=== PATIENT | female | born 1995 | race American Indian/Alaskan Native ===

== ENCOUNTER 2019-02-24 15:14 | Emergency (ER) | payer MEDICAID ==
[2019-02-24 15:47] VITALS: BP 154/76
--- NOTE | 2019-02-24 15:52 | Event Note ---
ED Screening Note Date of service: 02/24/19 Time: 15:50 ED Screening Note: 23 y/o female comes in for vag bleeding that is preg. LMP November but has irregular periods. This initial assessment/diagnostic orders/clinical plan/treatment(s) is/are subject to change based on patients health status, clinical progression and re- assessment by fellow clinical providers in the ED. Further treatment and workup at subsequent clinical providers discretion. Patient/guardian urged not to elope from the ED as their condition may be serious if not clinically assessed and managed. Initial orders include:
[2019-02-24 16:46] LABS: Basophils % (Auto) 0.2 % (0.0-1.8); Eosinophils # (Auto) 0.1 K/mm3 (0.0-0.4); Eosinophils % (Auto) 0.9 % (0.0-4.3); Hematocrit 35.4 % (30.3-42.9); Hemoglobin 12.3 gm/dl (10.1-14.3); Lymphocytes # (Auto) 3.2 K/mm3 (1.2-5.4); Lymphocytes % (Auto) 31.6 % (13.4-35.0); Mean Corpuscular HGB Conc 35 % (30-34); Mean Corpuscular Volume 81 fl (79-97); Monocytes # (Auto) 0.5 K/mm3 (0.0-0.8); Monocytes % (Auto) 5.5 % (0.0-7.3); Platelet Count 274 K/mm3 (140-440); Red Blood Count 4.39 M/mm3 (3.65-5.03); Red Cell Distribution Width 13.5 % (13.2-15.2)
[2019-02-24 17:20] LABS: Alanine Aminotransferase 13 units/L (7-56); Albumin 4.1 g/dL (3.9-5); BUN/Creatinine Ratio 13; Blood Urea Nitrogen 10 mg/dL (7-17); Calcium 9.6 mg/dL (8.4-10.2); Hemolysis Index 0
[2019-02-24 19:20] LABS: Bilirubin,Urine NEG (Negative); Blood,Urine NEG (Negative); Color,Urine Yellow (Yellow); Mucus,Urine 3+ /HPF; Urobilinogen,Urine < 2.0 mg/dL (<2.0)
--- NOTE | 2019-02-24 20:32 | Ultrasound Report ---
ULTRASOUND OBSTETRIC INDICATION / CLINICAL INFORMATION: preg with vag bleeding. TECHNIQUE: Transabdominal. COMPARISON: None available. FINDINGS: GESTATIONAL SAC: Well-defined oval shape and intrauterine in location. YOLK SAC: No significant abnormality. EMBRYO/FETUS: No significant abnormality. - [place]-Rump Length = 10.5 cm = 7 weeks, 1 day(s). - Heart Rate, beats per minute (if present) = 1:30 ADNEXA: 5 cm left ovarian cyst FREE FLUID: None. ADDITIONAL FINDINGS: Possible small subchorionic hemorrhage IMPRESSION: 1. Single, living intrauterine with estimated sonographic age of 7 weeks, 1 day(s). Signer Name: Preet Honeycutt MD Signed: 02/24/2019 8:27 PM Workstation Name: [id number]
--- NOTE | 2019-02-24 20:32 | Ultrasound Report ---
ULTRASOUND OBSTETRIC INDICATION / CLINICAL INFORMATION: preg with vag bleeding. TECHNIQUE: Transabdominal. COMPARISON: None available. FINDINGS: GESTATIONAL SAC: Well-defined oval shape and intrauterine in location. YOLK SAC: No significant abnormality. EMBRYO/FETUS: No significant abnormality. - [place]-Rump Length = 10.5 cm = 7 weeks, 1 day(s). - Heart Rate, beats per minute (if present) = 1:30 ADNEXA: 5 cm left ovarian cyst FREE FLUID: None. ADDITIONAL FINDINGS: Possible small subchorionic hemorrhage IMPRESSION: 1. Single, living intrauterine with estimated sonographic age of 7 weeks, 1 day(s). Signer Name: Preet Honeycutt MD Signed: 02/24/2019 8:28 PM Workstation Name: [id number]
== END 2019-02-24 17:12 | disposition left against medical advice (07) ==
LOC: ED 15:14
DX: O20.8 Other hemorrhage in early pregnancy (principal); Z53.21 Procedure and treatment not carried out due to patient leaving prior to being seen by health care provider
CPT/HCPCS: 36415; 76801; 76817; 80053; 81001; 84703; 85025; 86900; 86901

== ENCOUNTER 2019-04-06 14:39 | Emergency (ER) | payer MEDICAID ==
[2019-04-06 15:11] VITALS: BP 113/67
--- NOTE | 2019-04-06 15:11 | Event Note ---
ED Screening Note Date of service: 04/06/19 Time: 15:07 ED Screening Note: This is a 23 y.o. F. that presents to the ER with vaginal bleeding and abdominal pain for 1 week. Reports increasing abdominal pain for 2 hours. Diagnosed UTI 3-4 days ago. Patient is 12 weeks . INTER[employer] is Dr. Elias at [facility]. LMP 11/17/2018, A0 Patient also reports abscess to left axilla This initial assessment/diagnostic orders/clinical plan/treatment(s) is/are subject to change based on patients health status, clinical progression and re- assessment by fellow clinical providers in the ED. Further treatment and workup at subsequent clinical providers discretion. Patient/guardian urged not to elope from the ED as their condition may be serious if not clinically assessed and managed. Initial orders include: Labs and OB US
[2019-04-06 15:45] LABS: Bacteria,Urine 1+ /HPF (Negative); Bilirubin,Urine NEG (Negative); Blood,Urine NEG (Negative); Color,Urine Amber (Yellow); Mucus,Urine 3+ /HPF
[2019-04-06 16:21] LABS: Basophils % (Auto) 0.4 % (0.0-1.8); Eosinophils % (Auto) 0.2 % (0.0-4.3); Hematocrit 33.7 % (30.3-42.9); Hemoglobin 11.7 gm/dl (10.1-14.3); Lymphocytes % (Auto) 14.8 % (13.4-35.0); Mean Corpuscular HGB Conc 35 % (30-34); Mean Corpuscular Volume 80 fl (79-97); Monocytes % (Auto) 7.5 % (0.0-7.3); Red Blood Count 4.24 M/mm3 (3.65-5.03); Red Cell Distribution Width 13.7 % (13.2-15.2)
[2019-04-06 16:40] LABS: BUN/Creatinine Ratio 10; Blood Urea Nitrogen 7 mg/dL (7-17); Calcium 9.6 mg/dL (8.4-10.2); Hemolysis Index 0
[2019-04-06 16:56] LABS: Platelet Count 206 K/mm3 (140-440)
[2019-04-06] MEDS ORDERED: CLINDAMYCIN 600 MG/50 mL 600 MG/50 ML BAG IV ONE (18:47)
[2019-04-06] MEDS ORDERED: METOCLOPRAMIDE 10 MG/2 ML INJ IV ONE (18:47)
[2019-04-06] MEDS ORDERED: SODIUM CHLORIDE 0.9% 1000 ML 1,000 ML IV ONE (18:47)
[2019-04-06] MEDS ORDERED: diphenhydrAMINE 50 MG/ML VIAL IV ONE (18:47)
--- NOTE | 2019-04-06 19:59 | Emergency Department Report ---
ED Abdominal Pain HPI - General Chief Complaint: Abdominal Pain Stated Complaint: ABD PAIN Time Seen by Provider: 04/06/19 15:07 Source: patient Mode of arrival: Wheelchair Limitations: No Limitations - History of Present Illness Initial Comments: Patient is a 23-year-old female who presents to emergency room with complaints of suprapubic and pelvic discomfort for a few days. The patient states that a few days ago she had some light vaginal spotting but has not had any since then. States she has had associated nausea and vomiting. She is able to keep liquids down but is unable to eat very much food. pt states she also has an abscess to the right axilla for 5 days. she states she has had these in the past. the patient states she has been doing warm compresses. The patient is currently 13 weeks and is being seen at [facility]. Patient states that her ESTIMATOR PRINTING did a pelvic examination last week and took swabs and states that she does have BV but she has not started her medication yet. pt states her medication is ready for her at the pharmacy. Patient denies any fever, chills, diarrhea, vaginal discharge, vaginal itching, vaginal complaints. She denies any past medical history or allergies to medications. /P:1/A:0 - Related Data Home Medications Medication Instructions Recorded Confirmed Last Taken Ferrous Sulfate [Feosol 325 MG tab] 325 mg PO QDAY 09/14/13 10/09/13 10/09/13 Previous Rx's Medication Instructions Recorded Last Taken Type Amoxicillin [Amoxicillin TAB] 875 mg PO BID #20 tablet 06/18/18 Unknown Rx Ibuprofen [Motrin] 600 mg PO Q8H PRN #20 tablet 06/18/18 Unknown Rx Nystas/Diphen/Xyl Visc/Mylanta 15 ml MM Q4H PRN #1 ml 06/18/18 Unknown Rx [Magic Mouthwash] Acetaminophen [Acetaminophen TAB] 650 mg PO Q6HR PRN #30 tablet 04/02/19 Unknown Rx Nitrofurantoin Clark/M-Cryst 100 mg PO BID 7 Days #14 capsule 04/02/19 Unknown Rx [Macrobid CAP] Ondansetron [Zofran Odt] 4 mg PO Q8HR #12 tab.rapdis 04/02/19 Unknown Rx Clindamycin [Clindamycin CAP] 450 mg PO TID 7 Days #63 capsule 04/06/19 Unknown Rx Doxylamine Succinate [Unisom] 25 mg PO BID PRN #14 tablet 04/06/19 Unknown Rx Jeanie Root [Jeanie] 250 mg PO Q6HR PRN #14 capsule 04/06/19 Unknown Rx Pyridoxine HCl [Vitamin B-6 100MG 100 mg PO BID PRN #14 tablet 04/06/19 Unknown Rx TAB] Allergies Allergy/AdvReac Type Severity Reaction Status Date / Time Latex, Natural Rubber Allergy Rash Verified 02/24/19 15:27 ED Review of Systems ROS: Stated complaint: ABD PAIN Other details as noted in HPI Comment: All other systems reviewed and negative ED Past Medical Hx - Past Medical History Previous Medical History?: Yes Hx Hypertension: No Hx Congestive Heart Failure: No Hx Diabetes: No Hx Deep Vein Thrombosis: No Hx Renal Disease: No Hx Sickle Cell Disease: No Hx Seizures: No Hx Psychiatric Treatment: Yes ([employer], PTSD) Hx Asthma: No Hx COPD: No Hx HIV: No Additional medical history: brenda tomy syndrome - Surgical History Past Surgical History?: No - Social History Smoking Status: Never Smoker Substance Use Type: None - Medications Home Medications: Home Medications Medication Instructions Recorded Confirmed Last Taken Type Ferrous Sulfate [Feosol 325 MG tab] 325 mg PO QDAY 09/14/13 10/09/13 10/09/13 History Amoxicillin [Amoxicillin TAB] 875 mg PO BID #20 tablet 06/18/18 Unknown Rx Ibuprofen [Motrin] 600 mg PO Q8H PRN #20 tablet 06/18/18 Unknown Rx Nystas/Diphen/Xyl Visc/Mylanta 15 ml MM Q4H PRN #1 ml 06/18/18 Unknown Rx [Magic Mouthwash] Acetaminophen [Acetaminophen TAB] 650 mg PO Q6HR PRN #30 tablet 04/02/19 Unknown Rx Nitrofurantoin Clark/M-Cryst 100 mg PO BID 7 Days #14 capsule 04/02/19 Unknown Rx [Macrobid CAP] Ondansetron [Zofran Odt] 4 mg PO Q8HR #12 tab.rapdis 04/02/19 Unknown Rx Clindamycin [Clindamycin CAP] 450 mg PO TID 7 Days #63 capsule 04/06/19 Unknown Rx Doxylamine Succinate [Unisom] 25 mg PO BID PRN #14 tablet 04/06/19 Unknown Rx Jeanie Root [Jeanie] 250 mg PO Q6HR PRN #14 capsule 04/06/19 Unknown Rx Pyridoxine HCl [Vitamin B-6 100MG 100 mg PO BID PRN #14 tablet 04/06/19 Unknown Rx TAB] ED Physical Exam - General Limitations: No Limitations General appearance: alert, in no apparent distress - Head Head exam: Present: atraumatic, normocephalic - Eye Eye exam: Present: normal appearance - ENT ENT exam: Present: mucous membranes moist - Respiratory Respiratory exam: Present: normal lung sounds bilaterally. Absent: respiratory distress, wheezes, rales, rhonchi, stridor, chest wall tenderness, accessory muscle use, decreased breath sounds, prolonged expiratory - Cardiovascular Cardiovascular Exam: Present: regular rate, normal rhythm, normal heart sounds. Absent: systolic murmur, diastolic murmur, rubs, gallop - GI/Abdominal GI/Abdominal exam: Present: soft, normal bowel sounds. Absent: distended, tenderness, guarding, rebound, rigid - Speculum exam: Present: other (pt deferred ) - Back Exam Back exam: Absent: CVA tenderness (R), CVA tenderness (L) - Neurological Exam Neurological exam: Present: alert, oriented X3 - Psychiatric Psychiatric exam: Present: normal affect, normal mood - Skin Skin exam: Present: warm, dry, other (several small 1 cm areas of induration to the right axilla, no fluctuance, no drainage, no surrounding cellulitis) ED Course Vital Signs 04/06/19 15:08 Temperature 99 F Pulse Rate 116 H Respiratory 16 Rate Blood Pressure 113/67 [Left] O2 Sat by Pulse 99 Oximetry ED Medical Decision Making - Lab Data Result diagrams: 04/06/19 16:11 04/06/19 16:11 Lab Results 04/06/19 04/06/19 04/06/19 Range/Units 15:27 16:11 16:11 WBC 13.6 H (4.5-11.0) K/mm3 RBC 4.24 (3.65-5.03) M/mm3 Hgb 11.7 (10.1-14.3) gm/dl Hct 33.7 (30.3-42.9) % MCV 80 (79-97) fl MCH 28 (28-32) pg MCHC 35 H (30-34) % RDW 13.7 (13.2-15.2) % Plt Count 206 (140-440) K/mm3 Lymph % (Auto) 14.8 (13.4-35.0) % Clark % (Auto) 7.5 H (0.0-7.3) % Eos % (Auto) 0.2 (0.0-4.3) % Baso % (Auto) 0.4 (0.0-1.8) % Lymph # 2.0 (1.2-5.4) K/mm3 Clark # 1.0 H (0.0-0.8) K/mm3 Eos # 0.0 (0.0-0.4) K/mm3 Baso # 0.0 (0.0-0.1) K/mm3 Seg Neutrophils % 77.1 H (40.0-70.0) % Seg Neutrophils # 10.5 H (1.8-7.7) K/mm3 Sodium (137-145) mmol/L Potassium (3.6-5.0) mmol/L Chloride (98-107) mmol/L Carbon Dioxide (22-30) mmol/L Anion Gap mmol/L BUN (7-17) mg/dL Creatinine (0.7-1.2) mg/dL Estimated GFR ml/min BUN/Creatinine Ratio % Glucose (65-100) mg/dL Calcium (8.4-10.2) mg/dL HCG, Quant 34015 H (0-4) mIU/mL Urine Color Lennie (Yellow) Urine Turbidity Cloudy (Clear) Urine pH 6.0 (5.0-7.0) Ur Specific [place] 1.029 (1.003-1.030) Urine Protein 100 mg/dl (Negative) mg/dL Urine Glucose (UA) Neg (Negative) mg/dL Urine Ketones 80 (Negative) mg/dL Urine Blood Neg (Negative) Urine Nitrite Neg (Negative) Urine Bilirubin Neg (Negative) Urine Urobilinogen 2.0 (<2.0) mg/dL Ur Leukocyte Esterase Neg (Negative) Urine WBC (Auto) 4.0 (0.0-6.0) /HPF Urine RBC (Auto) 3.0 (0.0-6.0) /HPF U Epithel Cells (Auto) 31.0 H (0-13.0) /HPF Urine Bacteria (Auto) 1+ (Negative) /HPF Urine Mucus 3+ /HPF 04/06/19 Range/Units 16:11 WBC (4.5-11.0) K/mm3 RBC (3.65-5.03) M/mm3 Hgb (10.1-14.3) gm/dl Hct (30.3-42.9) % MCV (79-97) fl MCH (28-32) pg MCHC (30-34) % RDW (13.2-15.2) % Plt Count (140-440) K/mm3 Lymph % (Auto) (13.4-35.0) % Clark % (Auto) (0.0-7.3) % Eos % (Auto) (0.0-4.3) % Baso % (Auto) (0.0-1.8) % Lymph # (1.2-5.4) K/mm3 Clark # (0.0-0.8) K/mm3 Eos # (0.0-0.4) K/mm3 Baso # (0.0-0.1) K/mm3 Seg Neutrophils % (40.0-70.0) % Seg Neutrophils # (1.8-7.7) K/mm3 Sodium 137 (137-145) mmol/L Potassium 3.4 L (3.6-5.0) mmol/L Chloride 100.4 (98-107) mmol/L Carbon Dioxide 17 L (22-30) mmol/L Anion Gap 23 mmol/L BUN 7 (7-17) mg/dL Creatinine 0.7 (0.7-1.2) mg/dL Estimated GFR > 60 ml/min BUN/Creatinine Ratio 10 % Glucose 84 (65-100) mg/dL Calcium 9.6 (8.4-10.2) mg/dL HCG, Quant (0-4) mIU/mL Urine Color (Yellow) Urine Turbidity (Clear) Urine pH (5.0-7.0) Ur Specific [place] (1.003-1.030) Urine Protein (Negative) mg/dL Urine Glucose (UA) (Negative) mg/dL Urine Ketones (Negative) mg/dL Urine Blood (Negative) Urine Nitrite (Negative) Urine Bilirubin (Negative) Urine Urobilinogen (<2.0) mg/dL Ur Leukocyte Esterase (Negative) Urine WBC (Auto) (0.0-6.0) /HPF Urine RBC (Auto) (0.0-6.0) /HPF U Epithel Cells (Auto) (0-13.0) /HPF Urine Bacteria (Auto) (Negative) /HPF Urine Mucus /HPF - Radiology Data Radiology results: report reviewed OB ultrasound: There is a single intrauterine BPD=2.1cm = 13 weeks, 2 days Femur length = 1 cm = 13 weeks, 1 day Overall estimated sonographic age = 13 weeks, 2 days heart rate is 156 bpm Placenta is anterior Amniotic fluid volume appears normal Maternal adnexa 2.5 cm cyst in the left ovary. right ovary is unremarkable Uterine fibroid is noted Impression: 1. Single living intrauterine with estimated sonographic age of 13 weeks, 2 days. 2. There has been satisfactory interval growth since 04/02/2019 Signer name: Lorenzo Vazquez M.D. Signed: 04/06/2019 3:30 PM Workstation name: [id number] - Medical Decision Making Patient is a 33-year-old female who presents to emergency room with complaints of suprapubic and pelvic discomfort for a few days. The patient states that a few days ago she had some light vaginal spotting but has not had any since then. States she has had associated nausea and vomiting. She is able to keep liquids down but is unable to eat very much food. pt states she also has an abscess to the right axilla for 5 days. she states she has had these in the past. the patient states she has been doing warm compresses. The patient is currently 13 weeks and is being seen at [facility] [employer] [employer]. Patient states that her ESTIMATOR PRINTING did a pelvic examination last week and took swabs and states that she does have BV but she has not started her medication yet. pt states her medication is ready for her at the pharmacy. Patient denies any fever, chills, diarrhea, vaginal discharge, vaginal itching, vaginal complaints. She denies any past medical history or allergies to medications. /P:1/A:0. labs with mildly elevated WBC at 13,000. UA without evidence of UTI. OB US: 1. Single living intrauterine with estimated sonographic age of 13 weeks, 2 days. 2. There has been satisfactory interval growth since 04/02/2019. on exam: several small 1 cm areas of induration to the right axilla, no fluctuance, no drainage, no surrounding cellulitis, no abd tenderness to palpation. appears to have several small early abscesses to the right axilla, no drainable abscess at this time, pt given IV clindamycin and discharged home with prescription for clindamycin. advised pt that if abx did not work and began to become larger/fluctuant would need to return to the ED immediately for I&D procedure. pt given 1L of fluids, reglan and benadryl. given 1L of fluids due to ketones in urine and mild dehydration. pt was able to tolerate PO intake and had no further episodes of N/v. discussed with pt that we could do another pelvic examination today but she states she just had one completed last week and is going to follow up with her ESTIMATOR [employer]ING in office next week. pt given prescription for clindamycin, vitamin b6, unisom, and gingeroot. advised pt to take the vitamin b6 and unisom together. also advised pt to please take medication as prescribed to completion. Please increase her water intake. Follow-up with your [employer]ATOR [employer]ING in the next 3-5 days. Return to the emergency room for any new or worsening symptoms. Please return for any worsening signs of infection despite antibiotic therapy. please use warm compresses 3 times a day. - Differential Diagnosis UTI, IUP, subchorionic hemorrhage, placenta previa Critical care attestation.: If time is entered above; I have spent that time in minutes in the direct care of this critically ill patient, excluding procedure time. ED Disposition Clinical Impression: Abscess of right axilla Nausea and vomiting Qualifiers: Vomiting type: unspecified Vomiting Intractability: non-intractable Qualified Code(s): R11.2 - Nausea with vomiting, unspecified Abdominal pain during Qualifiers: Trimester: second trimester Qualified Code(s): O26.892 - Other specified related conditions, second trimester Disposition: DC-01 TO HOME OR SELFCARE Is pt being admited?: No Does the pt Need Aspirin: No Condition: Stable Instructions: Abscess (ED), Abdominal Pain in (ED) Additional Instructions: Please take medication as prescribed to completion. Please increase her water intake. Follow-up with your [employer] in the next 3-5 days. Return to the emergency room for any new or worsening symptoms. Please return for any worsening signs of infection despite antibiotic therapy. please use warm comp resses 3 times a day. Prescriptions: Clindamycin [Clindamycin CAP] 450 mg PO TID 7 Days #63 capsule Jeanie Root [Jeanie] 250 mg PO Q6HR PRN #14 capsule PRN Reason: Nausea And Vomiting Doxylamine Succinate [Unisom] 25 mg PO BID PRN #14 tablet PRN Reason: Nausea And Vomiting Pyridoxine HCl [Vitamin B-6 100MG TAB] 100 mg PO BID PRN #14 tablet PRN Reason: Nausea And Vomiting Referrals: [facility] [Provider Group] - 3-5 Days Time of Disposition: 19:59 Print Language: CZECH
--- NOTE | 2019-04-10 12:19 | Ultrasound Report ---
ULTRASOUND OBSTETRIC Indication: 12 wks gest, vaginal bleeding and pelvic pain COMPARISON: 04/02/2019 Findings: There is a single intrauterine . BPD = 2.1 cm = 13 weeks, 2 day(s). Femur length = 1 cm = 13 weeks, 1 day(s). Overall estimated sonographic age = 13 weeks, 2 day(s). heart rate is 156 beats per minute. Placenta is anterior . Amniotic fluid volume appears normal. Maternal adnexa 2.5 cm cyst in the left ovary. The right ovary is unremarkable.. Uterine fibroid is noted Impression: 1. Single living intrauterine with estimated sonographic age of 13 weeks, 2 day(s). 2. There has been satisfactory interval growth since 04/02/2019 Signer Name: Yanick Vazquez MD Signed: 04/06/2019 4:30 PM Workstation Name: [id number]
== END 2019-04-06 20:38 | disposition home or self-care (01) ==
LOC: ED 14:39
DX: O99.711 Diseases of the skin and subcutaneous tissue complicating pregnancy, first trimester (principal); L02.411 Cutaneous abscess of right axilla; O21.8 Other vomiting complicating pregnancy; R10.2 Pelvic and perineal pain; Z79.899 Other long term (current) drug therapy; Z91.040 Latex allergy status; Z91.048 Other nonmedicinal substance allergy status; Z3A.13 13 weeks gestation of pregnancy
CPT/HCPCS: 36415; 76801; 80048; 81001; 84702; 85025; 96365; 96375; 99284; J1200; J2765; J7030

== ENCOUNTER 2019-09-25 16:08 | Inpatient (IN) | payer MEDICAID ==
[2019-09-25 17:58] LABS: Basophils % (Auto) 0.4 % (0.0-1.8); Eosinophils # (Auto) 0.1 K/mm3 (0.0-0.4); Eosinophils % (Auto) 0.6 % (0.0-4.3); Hematocrit 32.4 % (30.3-42.9); Hemoglobin 11.2 gm/dl (10.1-14.3); Lymphocytes # (Auto) 3.4 K/mm3 (1.2-5.4); Lymphocytes % (Auto) 26.5 % (13.4-35.0); Mean Corpuscular HGB Conc 35 % (30-34); Mean Corpuscular Volume 80 fl (79-97); Monocytes % (Auto) 7.5 % (0.0-7.3); Platelet Count 271 K/mm3 (140-440); Red Blood Count 4.07 M/mm3 (3.65-5.03)
[2019-09-25] MEDS ORDERED: DINOPROSTONE 10 MG VAG SUPP VG ONE (18:00)
[2019-09-25] MEDS ORDERED: LACTATED RINGERS 1,000 ML IV SCH (18:00)
[2019-09-25] MEDS ORDERED: ZOLPIDEM 5 MG TAB PO PRN (21:24)
--- NOTE | 2019-09-25 21:59 | Ultrasound Report ---
ULTRASOUND OBSTETRIC INDICATION / CLINICAL INFORMATION: EFW and presentation. Clinical Gestational Age (GA): 37 weeks 4 days TECHNIQUE: Transabdominal. COMPARISON: First trimester ultrasound from 04/06/2019 FINDINGS: There is a single intrauterine . Biparietal Diameter = 8.8 cm = 35 weeks, 4 day(s). Head Circumference = 32.3 cm = 36 weeks, 3 day(s). Abdominal Circumference = 33.9 cm = 37 weeks, 5 day(s). Femur Length = 7.0 cm = 36 weeks, 0 day(s). Average Ultrasound Age (AUA) = 36 weeks, 3 day(s). Heart Rate: 126 beats per minute. Estimated Weight in grams (if calculated): 3074 Estimated Weight Growth Percentile (if calculated): Position: cephalic. Cervix: closed. Length in cm (if measured): 3.3 Placenta: anterior and free of the os. Amniotic Fluid Volume: normal Amniotic Fluid Index (KHADRA) in cm (if calculated): 12.5. Maternal Adnexa: No significant abnormality. IMPRESSION: 1. Single, living intrauterine with estimated sonographic age of 36 weeks, 3 day(s). 2. No significant sonographic abnormality. Signer Name: Itz Hansen MD Signed: 09/25/2019 9:55 PM Workstation Name: [email or web address]
[2019-09-26] MEDS ORDERED: ONDANSETRON 4 MG/2 ML INJ IV PRN (07:48)
[2019-09-26] MEDS ORDERED: TERBUTALINE 1 MG/1 ML INJ IVP PRN (07:48)
[2019-09-26] MEDS ORDERED: PROMETHAZINE 25 MG TAB PO PRN (07:48)
[2019-09-26] MEDS ORDERED: TERBUTALINE 1 MG/1 ML INJ SUB-Q PRN (07:48)
[2019-09-26] MEDS ORDERED: ePHEDrine SULFATE 50 MG/1 ML INJ IV PRN (07:48)
[2019-09-26] MEDS ORDERED: NALOXONE 0.4 MG/1 ML INJ IV PRN (07:48)
[2019-09-26] MEDS ORDERED: OXYTOCIN DRIP 30 UNITS/500 ML BAG IV SCH ×2 (08:00)
[2019-09-26] MEDS ORDERED: OXYTOCIN 20 UNIT/1000ML DRIP 20 UNITS/1,000 ML BAG IV SCH (08:00)
--- NOTE | 2019-09-26 08:44 | History and Physical Report ---
History of Present Illness Date of examination: 09/26/19 Date of admission: 09/26/19 Chief complaint: Sent from [facility] for induction of labor. History of present illness: Pt is a 24 yo at 37w5d EGA who presents from the [facility] office for IOL secondary to oligohydramnios at term. KHADRA was 5cm. She reports positive movement and contractions s/p Cervidil placement last night. She has received care with [facility] and [facility]. 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 She is GBS negative. Past History Past Medical History: other (anxiety, depression, Pranay-Maryellen syndrome) Past Surgical History: no surgical history Social history: no significant social history - Obstetrical History Expected Date of Delivery: 10/12/19 Actual Gestation: 37 Week(s) 5 Day(s) : 2 Para: 1 Hx # Term Pregnancies: 1 Number of Living Children: 1 Medications and Allergies Allergies Allergy/AdvReac Type Severity Reaction Status Date / Time Latex, Natural Rubber Allergy Rash Verified 02/24/19 15:27 Home Medications Medication Instructions Recorded Confirmed Last Taken Type No Known Home Medications [No 09/25/19 09/25/19 Unknown History Reported Home Medications] Active Meds: Active Medications Butorphanol Tartrate (Stadol) 2 mg IV Q2H PRN PRN Reason: Labor Pain Ephedrine Sulfate (Ephedrine Sulfate) 10 mg IV Q2M PRN PRN Reason: Hypotension Lactated Ringer's (Lactated Ringers) 1,000 mls @ 125 mls/hr IV DIRECT CINDY Last Admin: 09/26/19 00:36 Dose: 125 mls/hr Documented by: Oxytocin/Sodium Chloride (Pitocin/Ns 20 Unit/1000ml Drip) 20 units in 1,000 mls @ 125 mls/hr IV DIRECT CINDY Oxytocin/Sodium Chloride (Pitocin/Ns 30 Unit/500ml) 30 units in 500 mls @ 1 mls/hr IV TITR CINDY; Protocol Oxytocin/Sodium Chloride (Pitocin/Ns 30 Unit/500ml) 30 units in 500 mls @ 2 mls/hr IV TITR CINDY; Protocol Lactated Ringer's (Lactated Ringers) 1,000 mls @ 125 mls/hr IV DIRECT CINDY Lidocaine (Xylocaine 2%) 20 ml INFILTRATI ONCE ONE Stop: 09/26/19 07:49 Mineral Oil (Mineral Oil) 30 ml PO QHS PRN PRN Reason: Constipation Naloxone HCl (Naloxone) 0.1 mg IV Q2MIN PRN PRN Reason: Res Rate </= 8 or 02 SAT < 92% Ondansetron HCl (Zofran) 4 mg IV Q8H PRN PRN Reason: Nausea And Vomiting Promethazine HCl (Phenergan) 25 mg PO Q6H PRN PRN Reason: Nausea And Vomiting Terbutaline Sulfate (Brethine) 0.25 mg SUB-Q ONCE PRN PRN Reason: Hyperstimulation/Hypertonicity Terbutaline Sulfate (Brethine) 0.25 mg IVP ONCE PRN PRN Reason: Hyperstimulation/Hypertonicity Zolpidem Tartrate (Ambien) 5 mg PO QHS PRN PRN Reason: Sleep Last Admin: 09/26/19 03:40 Dose: 5 mg Documented by: Review of Systems All systems: negative Genitourinary: contractions (mild), no vaginal bleeding, no leakage of fluid - Vital Signs Vital signs: Vital Signs Temp Pulse Resp BP Pulse Ox 97.9 F 102 H 18 127/58 98 09/25/19 16:45 09/25/19 16:45 09/25/19 16:45 09/25/19 16:45 09/25/19 16:45 Temp Pulse Resp BP Pulse Ox 98.1 F 77 18 101/57 96 09/26/19 03:00 09/26/19 08:36 09/25/19 19:07 09/26/19 07:49 09/26/19 08:36 - Physical Exam Lungs: Positive: Normal air movement Abdomen: Positive: soft Uterus: Positive: enlarged (gravid) - Obstetrical FHR: category 1 Uterine Contraction Monitor Mode: External Results Result Diagrams: 09/25/19 17:30 Abnormal lab results 09/25/19 Range/Units 17:30 WBC 12.7 H (4.5-11.0) K/mm3 MCHC 35 H (30-34) % RDW 16.0 H (13.2-15.2) % [place] % (Auto) 7.5 H (0.0-7.3) % [place] # 1.0 H (0.0-0.8) K/mm3 Seg Neutrophils # 8.3 H (1.8-7.7) K/mm3 All other labs normal. Assessment and Plan A: 24 yo at 37.5 weeks EGA Oligohydramnios Pranay [place] Syndrome right pyelectasis Lamictal and Buspar this Hgb C trait GBS negative Membranes intact P: IOL for oligo Peds team aware Monitor closely Pitocin when cervix favorable Anticipate
[2019-09-26 09:46] LABS: Hematocrit 34.2 % (30.3-42.9); Hemoglobin 11.7 gm/dl (10.1-14.3); Mean Corpuscular HGB Conc 34 % (30-34); Mean Corpuscular Volume 80 fl (79-97); Platelet Count 268 K/mm3 (140-440); Red Blood Count 4.27 M/mm3 (3.65-5.03); Red Cell Distribution Width 15.9 % (13.2-15.2)
[2019-09-26] MEDS: LACTATED RINGERS 1,000 ML IV SCH ×2 (10:59→19:20)
[2019-09-26] MEDS ORDERED: LIDOCAINE (2%) 20 MG/1 ML VIAL 20 ML MDV INFILTRATI ONE (11:00)
[2019-09-26] MEDS ORDERED: miSOPROStol 25 MCG TAB VG SCH (11:00)
[2019-09-26] MEDS: busPIRone 10 MG TAB PO SCH ×2 (11:24→22:07)
[2019-09-26] MEDS: lamoTRIgine 25 MG TAB PO SCH (11:24)
[2019-09-26] MEDS ORDERED: DINOPROSTONE 10 MG VAG SUPP VG SCH (15:30)
[2019-09-26] MEDS: BUTORPHANOL 2 MG/1 ML INJ IV PRN (20:45)
[2019-09-26] MEDS ORDERED: MINERAL OIL 30 ML ORAL LIQD PO PRN (22:00)
[2019-09-27] MEDS: LACTATED RINGERS 1,000 ML IV SCH ×2 (00:56→10:10)
[2019-09-27] MEDS ORDERED: OXYTOCIN DRIP 30 UNITS/500 ML BAG IV SCH (04:30)
--- NOTE | 2019-09-27 08:39 | Progress Note ---
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 Cook catheter placed in sterile fashion, inflated to 60ml/60ml. Continue low dose Pitocin Peds team aware Monitor closely Anticipate Subjective - Subjective Date of service: 09/27/19 Principal diagnosis: IOL for oligohydramnios Interval history: HD3 of IOL for oligohydramnios. Patient reports frequent contractions overnight, have not picked up on toco. Pt is a 24 yo at 37w5d EGA who presents from the [facility] office for IOL secondary to oligohydramnios at term. KHADRA was 5cm. She reports positive movement and contractions s/p Cervidil placement last night. She has received care with [facility] and [facility]. Her has been complicated by Pranay-Mareyllen syndrome, anxiety and depression on Lamictal and Buspar, right pyelectasis 7mm, and HgbC trait without FOB testing. She is GBS negative. Patient reports: no new complaints, no loss of fluid Objective - Vital Signs Vital Signs: Vital Signs - 12hr 09/26/19 09/26/19 09/26/19 20:38 20:43 20:48 Temperature Pulse Rate 101 H 100 H 95 H Respiratory Rate Blood Pressure Blood Pressure [Left] O2 Sat by Pulse 98 98 99 Oximetry 09/26/19 09/26/19 09/26/19 20:53 20:58 21:03 Temperature Pulse Rate 86 98 H 96 H Respiratory Rate Blood Pressure Blood Pressure [Left] O2 Sat by Pulse 98 96 98 Oximetry 09/26/19 09/26/19 09/26/19 21:08 21:13 21:18 Temperature Pulse Rate 86 100 H 86 Respiratory Rate Blood Pressure Blood Pressure [Left] O2 Sat by Pulse 97 97 96 Oximetry 09/26/19 09/26/19 09/26/19 21:23 21:28 21:33 Temperature Pulse Rate 99 H 91 H 95 H Respiratory Rate Blood Pressure Blood Pressure [Left] O2 Sat by Pulse 94 98 98 Oximetry 09/26/19 09/26/19 09/26/19 21:38 21:43 22:02 Temperature Pulse Rate 115 H 110 H 100 H Respiratory Rate Blood Pressure Blood Pressure [Left] O2 Sat by Pulse 98 99 98 Oximetry 09/26/19 09/26/19 09/26/19 22:07 22:12 22:17 Temperature Pulse Rate 96 H 103 H 92 H Respiratory Rate Blood Pressure Blood Pressure [Left] O2 Sat by Pulse 98 97 94 Oximetry 09/26/19 09/26/19 09/26/19 22:22 22:27 22:32 Temperature Pulse Rate 100 H 93 H 98 H Respiratory Rate Blood Pressure Blood Pressure [Left] O2 Sat by Pulse 94 95 94 Oximetry 09/26/19 09/26/19 09/26/19 22:37 22:42 22:47 Temperature Pulse Rate 102 H 90 90 Respiratory Rate Blood Pressure Blood Pressure [Left] O2 Sat by Pulse 96 94 95 Oximetry 09/26/19 09/26/19 09/26/19 22:52 22:57 23:02 Temperature Pulse Rate 97 H 97 H 98 H Respiratory Rate Blood Pressure Blood Pressure [Left] O2 Sat by Pulse 97 97 97 Oximetry 09/26/19 09/26/19 09/26/19 23:07 23:12 23:17 Temperature Pulse Rate 93 H 106 H 101 H Respiratory Rate Blood Pressure Blood Pressure [Left] O2 Sat by Pulse 95 98 98 Oximetry 09/26/19 09/26/19 09/26/19 23:22 23:24 23:27 Temperature Pulse Rate 97 H 92 H 88 Respiratory Rate Blood Pressure 111/56 Blood Pressure [Left] O2 Sat by Pulse 97 97 Oximetry 09/26/19 09/26/19 09/26/19 23:32 23:37 23:42 Temperature Pulse Rate 89 94 H 98 H Respiratory Rate Blood Pressure Blood Pressure [Left] O2 Sat by Pulse 97 97 97 Oximetry 09/26/19 09/26/19 09/26/19 23:47 23:52 23:57 Temperature 98.4 F Pulse Rate 89 90 92 H Respiratory 18 Rate Blood Pressure Blood Pressure [Left] O2 Sat by Pulse 98 97 98 Oximetry 09/27/19 09/27/19 09/27/19 00:12 00:17 00:22 Temperature Pulse Rate 102 H 95 H 92 H Respiratory Rate Blood Pressure Blood Pressure [Left] O2 Sat by Pulse 97 97 96 Oximetry 09/27/19 09/27/19 09/27/19 00:27 00:32 00:37 Temperature Pulse Rate 89 90 99 H Respiratory Rate Blood Pressure Blood Pressure [Left] O2 Sat by Pulse 99 97 98 Oximetry 09/27/19 09/27/19 09/27/19 00:42 00:52 00:57 Temperature Pulse Rate 94 H 115 H 97 H Respiratory Rate Blood Pressure Blood Pressure [Left] O2 Sat by Pulse 99 97 98 Oximetry 09/27/19 09/27/19 09/27/19 01:02 01:07 01:12 Temperature Pulse Rate 98 H 94 H 95 H Respiratory Rate Blood Pressure Blood Pressure [Left] O2 Sat by Pulse 97 97 99 Oximetry 09/27/19 09/27/19 09/27/19 01:17 01:22 01:27 Temperature Pulse Rate 91 H 92 H 93 H Respiratory Rate Blood Pressure Blood Pressure [Left] O2 Sat by Pulse 98 99 99 Oximetry 09/27/19 09/27/19 09/27/19 01:32 01:37 01:49 Temperature Pulse Rate 90 110 H 91 H Respiratory Rate Blood Pressure Blood Pressure [Left] O2 Sat by Pulse 98 99 98 Oximetry 09/27/19 09/27/19 09/27/19 01:54 01:59 02:04 Temperature Pulse Rate 88 89 78 Respiratory Rate Blood Pressure Blood Pressure [Left] O2 Sat by Pulse 99 98 99 Oximetry 09/27/19 09/27/19 09/27/19 02:09 02:14 02:19 Temperature Pulse Rate 86 82 90 Respiratory Rate Blood Pressure Blood Pressure [Left] O2 Sat by Pulse 99 99 98 Oximetry 09/27/19 09/27/19 09/27/19 02:24 02:32 02:37 Temperature Pulse Rate 102 H 107 H 89 Respiratory Rate Blood Pressure 105/51 Blood Pressure [Left] O2 Sat by Pulse 99 98 98 Oximetry 09/27/19 09/27/19 09/27/19 02:42 02:47 02:52 Temperature Pulse Rate 83 86 82 Respiratory Rate Blood Pressure Blood Pressure [Left] O2 Sat by Pulse 98 98 97 Oximetry 09/27/19 09/27/19 09/27/19 02:57 03:02 03:07 Temperature Pulse Rate 80 82 82 Respiratory Rate Blood Pressure Blood Pressure [Left] O2 Sat by Pulse 97 97 97 Oximetry 09/27/19 09/27/19 09/27/19 03:12 03:17 03:22 Temperature Pulse Rate 79 81 88 Respiratory Rate Blood Pressure Blood Pressure [Left] O2 Sat by Pulse 97 97 98 Oximetry 09/27/19 09/27/19 09/27/19 03:27 03:35 03:40 Temperature Pulse Rate 88 64 90 Respiratory Rate Blood Pressure Blood Pressure [Left] O2 Sat by Pulse 98 84 98 Oximetry 09/27/19 09/27/19 09/27/19 03:45 03:50 03:54 Temperature Pulse Rate 83 84 87 Respiratory Rate Blood Pressure 100/50 Blood Pressure [Left] O2 Sat by Pulse 98 99 Oximetry 09/27/19 09/27/19 09/27/19 03:55 04:00 04:05 Temperature 98.2 F Pulse Rate 84 86 79 Respiratory 16 Rate Blood Pressure Blood Pressure [Left] O2 Sat by Pulse 98 97 97 Oximetry 09/27/19 09/27/19 09/27/19 04:10 04:15 04:20 Temperature Pulse Rate 101 H 90 80 Respiratory Rate Blood Pressure Blood Pressure [Left] O2 Sat by Pulse 100 99 99 Oximetry 09/27/19 09/27/19 09/27/19 04:25 04:30 04:35 Temperature Pulse Rate 88 78 77 Respiratory Rate Blood Pressure Blood Pressure [Left] O2 Sat by Pulse 97 97 97 Oximetry 09/27/19 09/27/19 09/27/19 04:40 04:45 04:50 Temperature Pulse Rate 82 79 84 Respiratory Rate Blood Pressure Blood Pressure [Left] O2 Sat by Pulse 98 97 99 Oximetry 09/27/19 09/27/19 09/27/19 04:55 05:00 05:05 Temperature Pulse Rate 84 79 89 Respiratory Rate Blood Pressure Blood Pressure [Left] O2 Sat by Pulse 99 98 97 Oximetry 09/27/19 09/27/19 09/27/19 05:10 05:15 05:20 Temperature Pulse Rate 100 H 90 81 Respiratory Rate Blood Pressure Blood Pressure [Left] O2 Sat by Pulse 99 98 99 Oximetry 09/27/19 09/27/19 09/27/19 05:25 05:30 05:50 Temperature Pulse Rate 94 H 95 H 91 H Respiratory Rate Blood Pressure 112/56 Blood Pressure [Left] O2 Sat by Pulse 99 98 97 Oximetry 09/27/19 09/27/19 09/27/19 05:55 06:00 06:05 Temperature Pulse Rate 84 80 79 Respiratory Rate Blood Pressure Blood Pressure [Left] O2 Sat by Pulse 97 98 97 Oximetry 09/27/19 09/27/19 09/27/19 06:10 06:15 06:20 Temperature Pulse Rate 79 78 78 Respiratory Rate Blood Pressure Blood Pressure [Left] O2 Sat by Pulse 98 97 97 Oximetry 09/27/19 09/27/19 09/27/19 06:25 06:30 06:35 Temperature Pulse Rate 77 74 82 Respiratory Rate Blood Pressure Blood Pressure [Left] O2 Sat by Pulse 98 93 98 Oximetry 09/27/19 09/27/19 09/27/19 06:40 06:45 06:50 Temperature Pulse Rate 76 78 72 Respiratory Rate Blood Pressure Blood Pressure [Left] O2 Sat by Pulse 97 97 97 Oximetry 09/27/19 09/27/19 09/27/19 06:54 06:55 07:00 Temperature Pulse Rate 80 90 82 Respiratory Rate Blood Pressure 111/51 Blood Pressure [Left] O2 Sat by Pulse 98 98 Oximetry 09/27/19 09/27/19 09/27/19 07:05 07:10 07:15 Temperature Pulse Rate 80 78 81 Respiratory Rate Blood Pressure Blood Pressure [Left] O2 Sat by Pulse 97 100 97 Oximetry 09/27/19 09/27/19 09/27/19 07:20 07:25 07:31 Temperature 98.2 F Pulse Rate 85 103 H 88 Respiratory 18 Rate Blood Pressure Blood Pressure 90/50 [Left] O2 Sat by Pulse 97 98 98 Oximetry 09/27/19 09/27/19 09/27/19 07:32 07:36 07:37 Temperature Pulse Rate 74 88 85 Respiratory Rate Blood Pressure 90/50 Blood Pressure [Left] O2 Sat by Pulse 89 98 Oximetry 09/27/19 09/27/19 09/27/19 07:42 07:47 07:52 Temperature Pulse Rate 89 84 88 Respiratory Rate Blood Pressure Blood Pressure [Left] O2 Sat by Pulse 98 98 99 Oximetry 09/27/19 09/27/19 09/27/19 07:57 08:02 08:07 Temperature Pulse Rate 77 77 79 Respiratory Rate Blood Pressure Blood Pressure [Left] O2 Sat by Pulse 99 99 97 Oximetry 09/27/19 09/27/19 09/27/19 08:12 08:14 08:17 Temperature Pulse Rate 98 H 90 80 Respiratory Rate Blood Pressure Blood Pressure [Left] O2 Sat by Pulse 100 88 98 Oximetry 09/27/19 09/27/19 09/27/19 08:22 08:24 08:27 Temperature Pulse Rate 78 73 97 H Respiratory Rate Blood Pressure 113/56 Blood Pressure [Left] O2 Sat by Pulse 98 100 Oximetry 09/27/19 08:32 Temperature Pulse Rate 89 Respiratory Rate Blood Pressure Blood Pressure [Left] O2 Sat by Pulse 99 Oximetry - Exam Lungs: Normal air movement Abdomen: Present: soft FHR: category 1 Cervical Dilatation: 0.5 Cervical Effacement Percentage: 0 station: -4 Uterine Contraction Pattern: Irregular - Labs Labs: Abnormal Labs 09/25/19 09/26/19 17:30 09:04 WBC 12.7 H 12.6 H MCH 27 L MCHC 35 H RDW 16.0 H 15.9 H [place] % (Auto) 7.5 H [place] # 1.0 H Seg Neutrophils # 8.3 H Laboratory Results - last 24 hr 09/26/19 09:04 WBC 12.6 H RBC 4.27 Hgb 11.7 Hct 34.2 MCV 80 MCH 27 L MCHC 34 RDW 15.9 H Plt Count 268
[2019-09-27] MEDS: busPIRone 10 MG TAB PO SCH (09:58)
[2019-09-27] MEDS: lamoTRIgine 25 MG TAB PO SCH (09:58)
[2019-09-27 11:15] LABS: Hemoglobin 10.9 gm/dl (10.1-14.3); Mean Corpuscular HGB Conc 35 % (30-34); Mean Corpuscular Volume 79 fl (79-97); Platelet Count 232 K/mm3 (140-440); Red Blood Count 3.93 M/mm3 (3.65-5.03); Red Cell Distribution Width 15.3 % (13.2-15.2)
[2019-09-27] MEDS: BUTORPHANOL 2 MG/1 ML INJ IV PRN (14:14)
--- NOTE | 2019-09-27 18:57 | Procedure Note ---
OB Delivery Note - Delivery Date of Delivery: 09/27/19 Surgeon: FARAZ SIMMS ([facility]) Estimated blood loss: 200cc - Vaginal Delivery presentation: vertex Delivery position: OA Intrapartum events: none Delivery induction: cervidil Delivery augmentation: rupture of membranes, pitocin Delivery monitor: external FHT, external uterine Route of delivery: Delivery placenta: spontaneous, other ([place]) Delivery cord: 3 umbilical vessels Episiotomy: none Delivery laceration: none Anesthesia: none Delivery comments: Pt noted to be c/c/+1 decel noted, repositioned to hands and knees. Excellent maternal effort progressed to of infant. Head delivered, OA, restituted ROT, shoulders followed easily. Cord clamped and cut and handed to peds team. [place] placenta followed spontaneously and intact, 3VC. Placenta infusing. No lacerations noted. EBL 200cc. - A Infant Gender: Female
[2019-09-27] MEDS ORDERED: diphenhydrAMINE 25 MG CAP PO PRN (18:58)
[2019-09-27] MEDS ORDERED: WITCH HAZEL/ GLYCERIN PAD TP PRN (18:58)
[2019-09-27] MEDS ORDERED: LANOLIN/ZINC/DIMETHICONE (LANSINOH) 7 GM TP PRN (18:58)
[2019-09-27] MEDS ORDERED: MAGNESIUM HYDROXIDE (MOM) ORAL LIQD UDC PO PRN (18:58)
[2019-09-27] MEDS ORDERED: PROMETHAZINE 25 MG RECT SUPP PR PRN (18:58)
[2019-09-27] MEDS ORDERED: ONDANSETRON 4 MG/2 ML INJ IV PRN (18:58)
[2019-09-27] MEDS ORDERED: ACETAMINOPHEN 325 MG TAB PO PRN (18:58)
[2019-09-27] MEDS ORDERED: PROMETHAZINE 25 MG TAB PO PRN (18:58)
[2019-09-27] MEDS: IBUPROFEN 600 MG TAB PO SCH (23:00)
[2019-09-27] MEDS: FERROUS SULFATE 325 MG TAB PO SCH (23:00)
[2019-09-28] MEDS: busPIRone 10 MG TAB PO SCH ×2 (00:08→10:10)
[2019-09-28] MEDS: IBUPROFEN 600 MG TAB PO SCH ×4 (02:44→19:06)
[2019-09-28 08:01] LABS: Hematocrit 28.9 % (30.3-42.9); Hemoglobin 9.8 gm/dl (10.1-14.3)
[2019-09-28] MEDS ORDERED: lamoTRIgine 25 MG TAB PO SCH (10:00)
[2019-09-28] MEDS: FERROUS SULFATE 325 MG TAB PO SCH (10:09)
--- NOTE | 2019-09-28 10:48 | Progress Note ---
Assessment and Plan A/P PPD 1 s/p doing well discharge home tomorrow axute anemia hgb 10-9.8 on iron Subjective - Subjective Date of service: 09/28/19 Principal diagnosis: IOL for oligohydramnios Patient reports: appetite normal, voiding normally, pain well controlled, flatus, ambulating normally [place]: doing well Objective - Vital Signs Latest vital signs: Vital Signs Temp Pulse Resp BP BP Pulse Ox 09/28/19 08:50 98.2 F 79 20 113/50 09/28/19 06:27 18 09/28/19 05:27 18 09/28/19 04:30 98.6 F 69 16 101/70 09/28/19 00:30 98.7 F 100 H 16 90/40 09/28/19 00:00 18 09/27/19 23:00 18 09/27/19 20:10 98 F 18 09/27/19 19:54 109 H 100 09/27/19 19:49 109 H 99 09/27/19 19:44 107 H 99 09/27/19 19:43 106 H 103/56 09/27/19 19:39 105 H 99 09/27/19 19:34 101 H 96 09/27/19 19:29 103 H 98 09/27/19 19:28 109 H 105/49 09/27/19 19:24 107 H 99 09/27/19 19:19 110 H 99 09/27/19 19:18 101 H 103/53 09/27/19 19:15 79 L 09/27/19 19:14 62 78 L 09/27/19 19:10 107 H 85 09/27/19 19:09 104 H 98 09/27/19 19:04 112 H 89 09/27/19 19:00 98.2 F 20 09/27/19 18:59 56 L 92 09/27/19 18:55 71 L 09/27/19 18:53 105 H 100 09/27/19 18:48 109 H 97 09/27/19 18:43 132 H 91 09/27/19 18:38 131 H 100 09/27/19 18:33 109 H 99 09/27/19 18:27 79 L 09/27/19 18:26 117 H 86 09/27/19 18:21 67 100 09/27/19 18:16 101 H 98 03/19/20 18:14 110 H 87 20 18:11 99 H 99 20 18:08 111 H 88 0320 18:06 95 H 100 0320 18:05 110 H 119/65 0320 18:01 97 H 99 20 18:00 107 H 83 L 0320 17:55 110 H 95 0320 17:50 120 H 87 20 17:29 107 H 94 20 17:24 97 H 95 20 17:19 91 H 97 20 17:14 98 H 100 09/27/19 17:09 125 H 100 09/27/19 17:04 113 H 99 09/27/19 16:59 119 H 98 20 16:54 105 H 99 20 16:49 106 H 99 20 16:44 106 H 98 20 16:39 104 H 99 20 16:34 118 H 98 20 16:22 111 H 100 20 16:17 107 H 98 20 16:12 109 H 99 20 16:07 103 H 98 09/27/19 16:02 88 98 20 15:57 88 106/53 94 20 15:52 86 95 20 15:47 99 H 97 20 15:42 91 H 94 20 15:37 95 H 94 20 15:32 82 96 20 15:27 103 H 97 20 15:22 98 H 96 20 15:17 109 H 97 03/20 15:12 99 H 97 20 15:07 114 H 98 20 14:52 87 97 20 14:47 86 96 09/26/20 14:42 88 95 19/20 14:37 84 96 09/26/20 14:32 83 95 0319/20 14:27 97 H 93 09/26/20 14:23 93 H 113/53 20 14:22 90 93 20 14:17 94 H 97 03/19/20 14:12 94 H 97 09/27/19 14:07 87 96 09/27/19 14:02 105 H 97 09/27/19 13:57 93 H 98 09/27/19 13:39 101 H 98 09/27/19 13:34 84 98 09/27/19 13:29 78 98 09/27/19 13:24 93 H 97 09/27/19 13:19 79 99 09/27/19 13:14 77 96 09/27/19 13:09 74 97 09/27/19 13:04 92 H 100 09/27/19 12:59 80 98 09/27/19 12:54 96 H 98 09/27/19 12:53 75 104/58 09/27/19 12:49 94 H 96 09/27/19 12:44 84 97 09/27/19 12:39 75 98 09/27/19 12:34 76 97 09/27/19 12:29 76 98 09/27/19 12:24 72 97 09/27/19 12:19 73 97 09/27/19 12:14 77 97 09/27/19 12:09 71 97 09/27/19 12:06 98.2 F 09/27/19 12:04 72 98 09/27/19 11:59 111 H 97 09/27/19 11:42 98 H 96 09/27/19 11:37 83 98 09/27/19 11:32 91 H 98 09/27/19 11:27 94 H 100 09/27/19 11:25 76 111/58 09/27/19 11:22 73 97 09/27/19 11:17 78 98 09/27/19 11:12 84 97 09/27/19 11:07 82 96 09/27/19 11:03 76 85 09/27/19 11:02 77 98 09/27/19 10:57 90 98 09/27/19 10:56 85 88 09/27/19 10:52 81 100 Intake and Output 09/27/19 09/28/19 09/28/19 23:59 07:59 15:59 Intake Total 9.533 940 120 Output Total 500 300 Balance -490.467 640 120 Intake: IV 9.533 PITOCin/NS 30 UNIT/500ML 9.533 30 units In 500 ml @ 1 MILLIUNITS/MIN 1 mls/hr IV TITR CINDY Rx#:[id number] Oral 640 120 Intake, Free Water 300 Output: Urine 500 300 Void 500 300 Other: Total, Intake Amount 200 120 Total, Output Amount 500 300 # Voids Void 1 1 1 Estimated Blood Loss 200 - Exam Breasts: Present: normal Cardiovascular: Present: Regular rate, Normal S1 Lungs: Present: Clear to auscultation, Normal air movement Abdomen: Present: normal appearance, soft, normal bowel sounds. Absent: distention, tenderness, guarding Uterus: Present: normal, firm, fundal height below umbilicus. Absent: bogginess, tenderness Extremities: Present: normal Deep Tendon Reflex Grade: Normal +2 - Labs Labs: Abnormal lab results 09/27/19 09/28/19 Range/Units 10:50 07:31 Hgb 9.8 L (10.1-14.3) gm/dl Hct 28.9 L (30.3-42.9) % MCHC 35 H (30-34) % RDW 15.3 H (13.2-15.2) %
--- NOTE | 2019-09-28 10:51 | Discharge Summary ---
Providers - Providers Date of Admission: 09/25/19 16:09 Date of discharge: 09/29/19 Attending physician: AURORA CARTWRIGHT MD Primary care physician: AURORA CARTWRIGHT MD Hospitalization Reason for admission: induction of labor Delivery: Episiotomy: none Laceration: none Incision: normal Other procedures: none complications: none Discharge diagnosis: IUP at term delivered baby: female Hospital course: routine PP ater IOL with Condition at discharge: Good Disposition: DC-01 TO HOME OR SELFCARE Plan - Discharge Medications Prescriptions: Ibuprofen [Motrin] 600 mg PO Q8H PRN #30 tablet PRN Reason: Pain - Provider Discharge Summary Activity: routine, no sex for 6 weeks, no strenuous exercise Diet: routine Instructions: routine Additional instructions: [] Smoking cessation referral if applicable(refer to patient education folder for contact #) [] Refer to [facility] Booklet Call your doctor immediately for: * Fever > 100.5 * Heavy vaginal bleeding ( >1 pad per hour) * Severe persistent headache * Shortness of breath * Reddened, hot, painful area to leg or breast * Drainage or odor from incision. * Keep incision clean and dry at all times and follow doctor's instructions regarding bathing/showering - Follow up plan Follow up: AURORA CARTWRIGHT MD [Primary Care Provider] - 6 Weeks
[2019-09-29] MEDS: FERROUS SULFATE 325 MG TAB PO SCH (00:02)
[2019-09-29] MEDS: busPIRone 10 MG TAB PO SCH (00:03)
[2019-09-29] MEDS: IBUPROFEN 600 MG TAB PO SCH ×2 (00:56→06:22)
[2019-09-29 15:47] VITALS: BP 108/60
== END 2019-09-29 17:45 | disposition home or self-care (01) | DRG 775 ==
LOC: TRG 16:08 → LD 16:09 → OB 09-27 20:32
PROVIDERS: ADMIT Obstetrics & Gynecology; ATTEND Obstetrics & Gynecology
PROC: 3E0P7VZ Introduction of Hormone into Female Reproductive, Via Natural or Artificial Opening (ICD-10-PCS; 2019-09-25)
PROC: 10E0XZZ Delivery of Products of Conception, External Approach (ICD-10-PCS; principal; 2019-09-27)
DX: O41.03X0 Oligohydramnios, third trimester, not applicable or unspecified (principal); Z3A.37 37 weeks gestation of pregnancy; Z37.0 Single live birth; Q78.1 Polyostotic fibrous dysplasia; D58.2 Other hemoglobinopathies; O99.340 Other mental disorders complicating pregnancy, unspecified trimester; F32.9 Major depressive disorder, single episode, unspecified
CPT/HCPCS: 36415; 59200; 76816; 85014; 85018; 85025; 85027; 86592; 86850; 86900; 86901; G0378; J0595; J2405; J2590; J7120; Q0169

== ENCOUNTER 2022-02-12 07:29 | Inpatient (IN) | payer MEDICAID ==
[2022-02-12] MEDS ORDERED: IBUPROFEN 800 MG TAB ONE (08:51)
--- NOTE | 2022-02-12 08:59 | History and Physical Report ---
History of Present Illness Date of examination: 02/12/22 Date of admission: 02/12/22 07:29 Chief complaint: I delivered my baby. History of present illness: Pt is a who delivered @ 36.2 wks (per records reviewed) in the ambulance. Her contractions started 2-3 days ago. She had one visit with a OB provider and has not been back since that visit. Also states for this she was consider a high risk d/t hemorrhage. She had one visit with [facility]. States she has used marijuana this whole because she did not know she was until last month. Denies alcohol use during this . Has a history of heart palpitations and was being followed by [facility] up until 2013. Past History Past Medical History: arrhythmia (Heart palpitations.) Past Surgical History: no surgical history Family/Genetic History: none Social history: other (Smoked marijuana during this current . ) - Obstetrical History Expected Date of Delivery: 03/10/22 Actual Gestation: 36 Week(s) 2 Day(s) : 3 Para: 3 Hx # Term Pregnancies: 3 Number of Pregnancies: 0 Spontaneous Abortions: 0 Induced : 0 Number of Living Children: 3 Medications and Allergies Allergies Allergy/AdvReac Type Severity Reaction Status Date / Time Latex, Natural Rubber Allergy Rash Verified 02/24/19 15:27 Home Medications Medication Instructions Recorded Confirmed Last Taken Type Ferrous Sulfate [Feosol 325 MG tab] 325 mg PO BID #30 tablet 09/28/19 Unknown Rx Ibuprofen [Motrin] 600 mg PO Q8H PRN #30 tablet 09/28/19 Unknown Rx Review of Systems All systems: negative - Vital Signs Vital signs: Vital Signs Pulse BP Pulse Ox 89 127/68 99 02/12/22 07:38 02/12/22 07:38 02/12/22 07:38 Temp Pulse Resp BP Pulse Ox 98.8 F 83 18 134/60 96 02/12/22 07:43 02/12/22 08:53 02/12/22 07:43 02/12/22 08:53 02/12/22 08:53 Pt denies chest pain, feeling dizzy or lightheaded, and shortness of breath. - Physical Exam Breasts: Positive: deferred Cardiovascular: Regular rate Lungs: Positive: Normal air movement Abdomen: Positive: normal appearance, soft Genitourinary (Female): Positive: normal external genitalia, normal perenium (No lacerations noted.) Vulva: both: normal Uterus: Positive: other (Firm, minimal vaginal bleeding noted. ) Extremities: Positive: normal Results Result Diagrams: 02/12/22 10:41 All other labs normal. GBS POSITIVE: per available records reviewed LABS ORDERED Assessment and Plan A: 26 y.o. @ 36.2 wks, on ambulance. Limited care. GBS Positive. History of heart palpitations. - Patient Problems (1) Limited care in third trimester Current Visit: Yes Status: Acute Plan to address problem: Case management consult ordered. (2) (normal spontaneous vaginal delivery) Current Visit: Yes Status: Acute Plan to address problem: Admit to mother baby unit after recovery on L&D. labs ordered. Pitocin per protocol. (3) Heart palpitations Current Visit: Yes Status: Acute Plan to address problem: Will continue to monitor. Order EKG if symptomatic or heart palpitations occur. (4) GBS (group B streptococcus) infection Current Visit: Yes Status: Acute (5) Marijuana use during Current Visit: Yes Status: Acute Plan to address problem: UDS ordered. Case management ordered.
[2022-02-12] MEDS ORDERED: LACTATED RINGERS 1,000 ML IV SCH (09:00)
[2022-02-12] MEDS ORDERED: OXYTOCIN DRIP 30 UNITS/500 ML BAG IV SCH ×3 (09:00→11:00)
[2022-02-12] MEDS ORDERED: LIDOCAINE (2%) 20 MG/1 ML VIAL 20 ML MDV INFILTRATI ONE (09:00)
[2022-02-12] MEDS ORDERED: LOPERAMIDE 2 MG CAP PO PRN (09:00)
[2022-02-12] MEDS ORDERED: miSOPROStol 200 MCG TAB PR PRN (09:00)
[2022-02-12] MEDS ORDERED: CARBOPROST TROMETHAMINE 250 MCG/1 ML INJ IM PRN (09:00)
[2022-02-12] MEDS ORDERED: METHYLERGONOVINE MALEATE 0.2 MG/ML VIAL IM PRN (09:00)
[2022-02-12] MEDS ORDERED: MINERAL OIL 30 ML ORAL LIQD PO PRN (09:00)
[2022-02-12] MEDS ORDERED: ePHEDrine SULFATE 50 MG/1 ML INJ IV PRN (09:00)
[2022-02-12] MEDS ORDERED: fentaNYL 100 MCG/2 ML INJ IV PRN (09:00)
--- NOTE | 2022-02-12 09:00 | Procedure Note ---
OB Delivery Note - Delivery Date of Delivery: 02/12/22 Ceiling Cleaner: OLIVIER KHAN - Vaginal Delivery presentation: vertex Delivery cord: 3 umbilical vessels Delivery laceration: none Anesthesia: none Delivery comments: Pt arrived to unit via EMS after a . Per EMS, delivery of male infant and placenta in ambulance. No complications with delivery per EMS. Placenta appears to be intact, 3 vessels noted. Perineum and vagina inspected, no lacerations noted. Unknown blood loss. Unknown Apgars. Mother and baby in room in stable condition. Labor and delivery orders placed. - Infant A Infant Gender: Male (3220g)
[2022-02-12] MEDS ORDERED: OXYTOCIN 10 UNIT/1 ML INJ IM PRN (10:00)
[2022-02-12] MEDS ORDERED: ACETAMINOPHEN 325 MG TAB PO PRN ×2 (10:00→11:00)
[2022-02-12] MEDS ORDERED: TERBUTALINE 1 MG/1 ML INJ SUB-Q PRN (10:00)
[2022-02-12] MEDS ORDERED: BUTORPHANOL 2 MG/1 ML INJ IV PRN (10:00)
[2022-02-12] MEDS ORDERED: ONDANSETRON 4 MG/2 ML INJ IV PRN (10:23)
[2022-02-12] MEDS ORDERED: LANOLIN/ZINC/DIMETHICONE (LANSINOH) 7 GM TP PRN ×2 (10:23→11:00)
[2022-02-12] MEDS ORDERED: MAGNESIUM HYDROXIDE (MOM) ORAL LIQD UDC PO PRN (11:00)
[2022-02-12] MEDS ORDERED: diphenhydrAMINE 25 MG CAP PO PRN (11:00)
[2022-02-12] MEDS ORDERED: BENZOCAINE/MENTHOL 20/0.5% TOP SPRAY 56 GM TP PRN (11:00)
[2022-02-12] MEDS ORDERED: miSOPROStol 100 MCG TAB PR PRN (11:00)
[2022-02-12] MEDS ORDERED: WITCH HAZEL/ GLYCERIN PAD TP PRN (11:00)
[2022-02-12] MEDS ORDERED: PROMETHAZINE 25 MG RECT SUPP PR PRN (11:00)
[2022-02-12] MEDS ORDERED: PROMETHAZINE 25 MG TAB PO PRN (11:00)
[2022-02-12] MEDS ORDERED: oxyCODONE /ACETAMINOPHEN 5-325MG TAB PO PRN (11:00)
[2022-02-12] MEDS: DOCUSATE SODIUM 100 MG CAP PO SCH (11:27)
[2022-02-12] MEDS: PRENATAL VIT27-FE FUMARATE-FOLIC ACID VIT TAB PO SCH (11:27)
[2022-02-12 12:24] LABS: Basophils % (Auto) 0.3 % (0.0-1.8); Eosinophils % (Auto) 0.1 % (0.0-4.3); Hematocrit 32.4 % (30.3-42.9); Hemoglobin 11.2 gm/dl (10.1-14.3); Lymphocytes # (Auto) 2.4 K/mm3 (1.2-5.4); Lymphocytes % (Auto) 15.5 % (13.4-35.0); Mean Corpuscular HGB Conc 35 % (30-34); Mean Corpuscular Volume 82 fl (79-97); Monocytes # (Auto) 0.9 K/mm3 (0.0-0.8); Monocytes % (Auto) 5.8 % (0.0-7.3); Platelet Count 247 K/mm3 (140-440); Red Blood Count 3.95 M/mm3 (3.65-5.03)
[2022-02-12] MEDS ORDERED: ACETAMINOPHEN 500 MG TAB PO PRN (13:00)
[2022-02-12 15:31] LABS: Amphetamine Screen,Urine Negative; Benzodiazepines Screen,Urine Negative; Cocaine Screen,Urine Negative; Methadone Screen,Urine Negative; Opiate Screen,Urine Negative
[2022-02-12 15:51] LABS: Cannabinoid Screen,Urine Positive
[2022-02-12 16:22] LABS: Bacteria,Urine 1+ /HPF (Negative); Mucus,Urine 1+ /HPF
[2022-02-12 16:40] LABS: Bilirubin,Urine Negative (Negative); Color,Urine PINK (Yellow); RBC,Urine > 182.0 /HPF (0.0-6.0)
[2022-02-12 16:41] LABS: Blood,Urine 3+ (Negative)
--- NOTE | 2022-02-12 17:38 | XRay Report ---
CHEST 1 VIEW INDICATION: SOB. COMPARISON: None. FINDINGS: Support devices: None. Heart: Normal. Lungs/Pleura: No acute pulmonary or pleural findings. IMPRESSION: 1. No acute findings. Signer Name: Bright Martinez MD Signed: 02/12/2022 5:34 PM Workstation Name: [id number]
[2022-02-12 21:00] LABS: Hematocrit 32.5 % (30.3-42.9); Hemoglobin 11.2 gm/dl (10.1-14.3)
[2022-02-13] MEDS: IBUPROFEN 800 MG TAB PO SCH ×3 (00:14→13:09)
[2022-02-13] MEDS: DOCUSATE SODIUM 100 MG CAP PO SCH ×2 (00:14→11:16)
--- NOTE | 2022-02-13 08:10 | Discharge Summary ---
Providers - Providers Date of Admission: 02/12/22 09:00 Date of discharge: 02/13/22 Attending physician: PAUL PALACIO 02/12/22 10:23 Consult to Case Management [CONS] Routine Services Needed at Discharge: Maker Up Folding Notified:: Yes Phone number called:: [phone] Additional Physician Instructions: Limited care. Admitted marijuana use during . Consult to Sports Book Writer [CONS] Routine Reason For Exam: assistance with , SNS Primary care physician: PAUL PALACIO Hospitalization Reason for admission: other (Pt is a who delivered @ 36.2 wks (per records reviewed) in the ambulance. Her contractions started 2-3 days ago. She had one visit with a OB provider and has not been back since that visit. Also states for this she was consider a high risk d/t hemorrhage. She had ) Delivery: Discharge diagnosis: IUP at term delivered baby: male Hospital course: Normal Condition at discharge: Good Disposition: 01 HOME / SELF CARE / HOMELESS - Discharge Diagnoses (1) Limited care in third trimester Status: Acute (2) Marijuana use during Status: Acute (3) (normal spontaneous vaginal delivery) Status: Acute Plan - Provider Discharge Summary Activity: no sex for 6 weeks Diet: routine Instructions: routine Additional instructions: [] Smoking cessation referral if applicable(refer to patient education folder for contact #) [] Refer to [facility] Booklet Call your doctor immediately for: * Fever > 100.5 * Heavy vaginal bleeding ( >1 pad per hour) * Severe persistent headache * Shortness of breath * Reddened, hot, painful area to leg or breast * Drainage or odor from incision. * Keep incision clean and dry at all times and follow doctor's instructions regarding bathing/showering - Follow up plan Follow up: PAUL PALACIO MD [Primary Care Provider] - 6 Weeks (May call office Tuesday to schedule circumcision)
[2022-02-13 08:42] VITALS: BP 116/67
[2022-02-13] MEDS ORDERED: TETANUS,DIPH,PERTUSS(ACELL) VACCINE 0.5 ML SYRINGE IM ONE (09:05)
[2022-02-13] MEDS: PRENATAL VIT27-FE FUMARATE-FOLIC ACID VIT TAB PO SCH (11:15)
--- NOTE | 2022-02-15 10:09 | Electrocardiograph Report ---
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
== END 2022-02-13 13:41 | disposition home or self-care (01) | DRG 776 ==
LOC: UNDOADMIN 07:29 → LD 07:29 → OB 09:00 → LD 09:55 → UNDOADMIN 10:23 → OB 10:23
PROVIDERS: ADMIT Obstetrics & Gynecology; ATTEND Obstetrics & Gynecology
PROC: 3E0234Z Introduction of Serum, Toxoid and Vaccine into Muscle, Percutaneous Approach (ICD-10-PCS; principal; 2022-02-13)
DX: Z39.0 Encounter for care and examination of mother immediately after delivery (principal); Z20.822 Contact with and (suspected) exposure to COVID-19; Z91.040 Latex allergy status; Z91.048 Other nonmedicinal substance allergy status; Z23 Encounter for immunization
CPT/HCPCS: 36415; 71045; 80307; 81001; 85014; 85018; 85025; 86592; 86850; 86900; 86901; 87086; 93005; G0378; U0003